=== PATIENT | female | born 1955 | race African-American/Black ===

== ENCOUNTER 2025-05-20 07:42 | Emergency (ER) | payer OTHER ==
[~2025-05-20] VITALS: Ht 170.2 cm; Wt 87.1 kg
--- NOTE | 2025-05-20 08:27 | ED.PDOC ---
Musculoskeletal HPI Comments A 69 YEAR OLD FEMALE PRESENTS TO THE ED WITH COMPLAINT OF LEFT ANKLE SWELLING AND REDNESS. PATIENT STATES SHE HAS BEEN EXPERIENCING LEFT ANKLE PAIN, SWELLING, REDNESS, AND WARMTH TO THE TOUCH FOR THE PAST 1 MONTH. PATIENT REPORTS SHE WENT TO A [facility] WHERE SHE WAS PRESCRIBED KEFLEX, MUPIROCIN OINTMENT, AND ULTRAM, BUT NOTES THERE HAS BEEN NO IMPROVEMENT IN HIS SYMPTOMS OF YET. PATIENT NOTES SHE WAS SENT TO THE ER TODAY BY [facility] TO RULE OUT A DVT IN HER LEFT LOWER EXTREMITY. PATIENT DENIES FEVER, CHILLS, SHORTNESS OF BREATH, CHEST PAIN, ABDOMINAL PAIN, NAUSEA, VOMITING, HEADACHE, OR OTHER COMPLAINTS. NO OTHER SYMPTOMS OR MODIFYING FACTORS AT THIS TIME. PATIENT IS ALERT, ORIENTED X 4, AND HAS STEADY GAIT. Chief Complaint: Lower Extremity Time Seen by MD: 07:51 Reviewed Notes: Nurses Notes, Medications, Allergies Allergies: Coded Allergies: NO KNOWN ALLERGIES (Unverified , 05/20/25) Information Source: Patient Mode of Arrival: Ambulatory Location: Left Extremity Location: Ankle Timing: Weeks Prehospital treatment: None Severity: Moderate Able to Move Extremity: Yes Bear Weight: Fully Pain: Moderate Mechanism: No Trauma, Spontaneous Circumstances: Spontaneous Onset of Symptoms: Spontaneous Symptoms: Swelling, Pain, Erythema, Warmth DVT Risk Factors: NONE Last Tetanus: UTD, Unknown Associated signs and symptoms: Ankle pain Past Medical History PAST MEDICAL HISTORY: Arthritis, HTN Surgical History: Denies all surgeries COMPLAINT ANALYST History: Denies all COMPLAINT ANALYST Hx, No Pertinent COMPLAINT ANALYST History Family History Family History: Reviewed,noncontributory to illness Social History Smoker: Non-Smoker Alcohol: Denies ETOH Use Drugs: Denies Drug Use Lives In: Home Constitutional: denies: chills, diaphoresis, fatigue, fever, malaise, sweats, weakness, others EENTM: denies: blurred vision, double vision, ear bleeding, ear discharge, ear drainage, ear pain, ear ringing, eye pain, eye redness, hearing loss, mouth pain, mouth swelling, nasal discharge, nose bleeding, nose congestion, nose pain, photophobia, tearing, throat pain, throat swelling, voice changes, others Respiratory: denies: cough, hemoptysis, orthopnea, SOB at rest, shortness of breath, SOB with excertion, stridor, wheezing, others Cardiovascular: denies: chest pain, dizzy spells, diaphoresis, Dyspnea on exertion, edema, irregular heart beat, left arm pain, lightheadedness, palpitations, PND, syncope, others Gastrointestinal: denies: abdomen distended, abdominal pain, blood streaked bowels, constipated, diarrhea, dysphagia, difficulty swallowing, hematemesis, melena, nausea, poor appetite, poor fluid intake, rectal bleeding, rectal pain, vomiting, others Genitourinary: denies: abnormal vagina bleeding, burning, dyspareunia, dysuria, flank pain, frequency, hematuria, incontinence, pain, , vagina discharge, urgency, others Neurological: denies: dizziness, fainting, headache, left sided numbness, left sided weakness, numbness, paresthesia, pre-existing deficit, right sided numbness, right sided weakness, seizure, speech problems, tingling, tremors, weakness, others Musculoskeletal: reports: joint pain, joint swelling, others (LEFT ANKLE PAIN AND SWELLING); denies: back pain, gout, muscle pain, muscle stiffness, neck pain Integumetry: reports: others (REDNESS OF LEFT ANKLE, WARMTH TO THE TOUCH); denies: bruises, change in color, change in hair/nails, dryness, laceration, lesions, lumps, rash, wounds Allergic/Immunocompromised: denies: Difficulty Healing, Frequent Infections, Hives, Itching, others Hematologic/Lymphatic: denies: anemia, blood clots, easy bleeding, easy bruising, swollen glands, others Endocrine: denies: excessive hunger, excessive sweating, excessive thirst, excessive urination, flushing, intolerance to cold, intolerance to heat, unexplained weight gain, unexplained weight loss, others Psychiatric: denies: anxiety, bipolar disorder, depression, hopeless, panic di sorder, schizophrenia, sleepless, suicidal, others All Other Systems: Reviewed and Negative Physical Exam General Appearance: No Apparent Distress, Normal HEENT: Normal ENT Inspection, PERRL/EOMI, Pharynx Normal, TMs Normal Neck: Full Range of Motion, Non-Tender, Normal, Normal Inspection Respiratory: Chest Non-Tender, Lungs Clear, No Accessory Muscle Use, No Respiratory Distress, Normal Breath Sounds Cardiovascular: No Edema, No JVD, No Murmur, No Gallop, Normal Peripheral Pulses, Regular Rate/Rhythm Breast Exam: Deferred Gastrointestinal: No Organomegaly, Non Tender, No Pulsatile Mass, Normal Bowel Sounds, Soft Genitalia: Deferred Pelvic: Deferred Rectal: Deferred Extremities: No calf tenderness, Normal capillary refill, Normal range of motion, No pedal edema, Swelling (AND TENDERNESS ON LEFT ANKLE TO LEFT LOWER LEG. ), Tender (AND MILD SWELLING ON LEFT MEDIAL ANKLE WITH LOCALIZED REDNESS, NO OPEN WOUND SEEN. ), Other (MILD REDNESS AND SWELLING ON LEFT LOWER LEG, NO DVT SIGNS. ) Musculoskeletal : Apperance: Normal Neurologic: Alert, sr. pricing analyst II-XII nml as Tested, No Motor Deficits, Normal Affect, Normal Mood, No Sensory Deficits Cerebellar Function: Normal Reflexes: Normal Skin: Dry, Normal Color, Warm Peripheral Pulses: 2+ carotid (R), 2+ carotid (L), 2+ dorsalis pedis (R), 2+ dorsalis pedis (L) Lymphatic: No Adenopathy Was a procedure done? Was a procedure done?: No Differential Diagnosis EXT Differential Diagnosis: Cellulitis, Gout, DJD, Strain, Arthritis X-Ray, Labs, Meds, VS Vital Signs Date Time Temp Pulse Resp B/P (MAP) Pulse Ox O2 Delivery O2 Flow Rate FiO2 05/20/25 09:24 58 15 100 Room Air 05/20/25 09:24 99.0 58 15 119/72 (88) 100 99.0 05/20/25 07:45 98.2 62 18 131/84 99 98.2 Lab Test 05/20/25 08:24 Range/Units White Blood Count 4.0 L 4.4-10.8 10^3/uL Red Blood Count 4.42 4.0-5.20 10^6/uL Hemoglobin 12.6 12.2-16.2 g/dL Hematocrit 38.3 36.0-46.0 % Mean Corpuscular Volume 86.7 80.0-100.0 fL Mean Corpuscular Hemoglobin 28.5 28.0-32.0 pg Mean Corpuscular Hemoglobin Concent 32.8 32.0-36.0 g/dL Red Cell Distribution Width 15.6 H 11.8-14.3 % Platelet Count 188 140-450 10^3/uL Mean Platelet Volume 9.7 6.9-10.8 fL Neutrophils (%) (Auto) 45.8 37.0-80.0 % Lymphocytes (%) (Auto) 39.3 10.0-50.0 % Monocytes (%) (Auto) 8.1 0.0-12.0 % Eosinophils (%) (Auto) 6.2 0.0-7.0 % Basophils (%) (Auto) 0.6 0.0-2.0 % Neutrophils # (Auto) 1.8 1.6-8.6 10 ^3/uL Lymphocytes # (Auto) 1.6 0.4-5.4 10 ^3/uL Monocytes # (Auto) 0.3 0-1.3 10 ^3/uL Eosinophils # (Auto) 0.2 0-0.8 10 ^3/uL Basophils # (Auto) 0 0-0.2 10 ^3/uL Nucleated Red Blood Cells 0.0 % Sodium Level 144 136-145 mmol/L Potassium Level 3.9 3.5-5.1 mmol/L Chloride Level 106 98-107 mmol/L Carbon Dioxide Level 29 20-31 mmol/L Anion Gap 9 5-15 Blood Urea Nitrogen 6 L 9-23 mg/dL Creatinine 0.73 0.550-1.02 mg/dL Glomerular Filtration Rate Calc 90 >90 mL/min BUN/Creatinine Ratio 8.2 L 10.0-20.0 Serum Glucose 83 74-106 mg/dL Lactic Acid Level 1.7 0.4-2.0 mmol/L Uric Acid 4.3 3.1-7.8 mg/dL Calcium Level 9.1 8.7-10.4 mg/dL CLINICAL INDICATION: LEFT ANKLE PAIN AND SWELLING TECHNIQUE: XY L ANKLE 3 VIEW Comparison: None FINDINGS/IMPRESSION: : There is no evidence of acute fracture or dislocation. Soft tissues are unremarkable. Diffuse degenerative changes. Possible chronic posttraumatic nondisplaced healed fracture of the medial malleolus. ATED BY: BO CASTANEDA MD DICTATED DATE/TIME: 05/20/25910 SIGNED BY: BO CASTANEDA MD SIGNED DATE/TIME: 05/20/25910 CC: Left lower extremity venous duplex Clinical History: LEFT ANKLE PAIN TO LEFT LOWER LEG, SENT FROM [facility] Comparison: XY L ANKLE 3 VIEW on DOS: 05/20/25 Technique: Duplex Doppler evaluation of the deep venous system of the left lower extremity from the common femoral vein to the popliteal vein including color Doppler and spectral/pulsed waveform analysis was performed. Findings: The common femoral vein demonstrates appropriate compressibility and waveform variability. There is compressibility/patency of the great saphenous vein at the proximal thigh. The femoral vein demonstrates appropriate compressibility and waveform vari ability. The deep femoral vein demonstrates appropriate compressibility and waveform variability. The popliteal vein demonstrates appropriate compressibility and waveform variability. There is normal compressibility at the tibioperoneal trunk. Impression: No left femoropopliteal venous thrombosis. ATED BY: BO CASTANEDA MD DICTATED DATE/TIME: 05/20/251046 SIGNED BY: BO CASTANEDA MD SIGNED DATE/TIME: 05/20/251046 CC: X-Ray, Labs, Meds, VS Comment EXTERNAL MEDICAL RECORDS REVIEWED: [NONE] INDEPENDENT HISTORIANS: [NONE] SOCIAL DETERMINANTS OF HEALTH: [NONE] LABS ORDERED: CBC, BMP, LACTIC ACID W/REFLEX, URIC ACID REVIEWED AND INTERPRETED RESULTS: NORMAL IMAGING ORDERED: XR ANKLE LT, CV VENOUS DOPPLER LOW EXT LT TREATMENTS ORDERED: NONE PROCEDURES PERFORMED: NONE CRITICAL CARE TIME: NONE I HAVE DISCUSSED THE PATIENT WITH THE ATTENDING PHYSICIAN DR. KENNY AND HE AGREES WITH THE PATIENT'S PLAN OF CARE AND DISPOSITION. BASED ON HISTORY OF PRESENT ILLNESS, AND PHYSICAL EXAM, PATIENT WILL BE DISCHARGED HOME. SHARED DECISION MAKING: DISCUSSED WITH PATIENT THAT THEIR WORKUP WAS NORMAL. PATIENT INSTRUCTED TO FOLLOW UP WITH PRIMARY CARE PROVIDER IN 1-2 DAYS FOR RE- EVALUATION OF SYMPTOMS. PATIENT VERBALIZES UNDERSTANDING TO RETURN TO ED FOR NEW OR WORSENING SYMPTOMS OR IF FOLLOW UP WITH PCP CANNOT BE OBTAINED. PATIENT FEELS COMFORTABLE GOING HOME AT THIS TIME. ALL QUESTIONS ADDRESSED AT TIME OF MIGUEL ÁNGEL ROBLEDO. Images Reviewed?: Images reviewed and evaluated by me Time of 1ST Reevaluation: 10:55 Reevaluation 1ST: Improved Patient Education/Counseling: Diagnosis, Treatment, Need For Follow Up Family Education/Counseling: Diagnosis, Treatment, Need For Follow Up Medical Screening: No EMC Exist At This Time Sepsis Sepsis Reasesment Focused Exam Orders: Laboratory Tests 05/20/25 08:24: Lactic Acid Level 1.7 Departure 1 Departure Time of Disposition: 10:56 Impression: Primary Impression: Degenerative joint disease of left ankle Qualified Codes: M19.072 - Primary osteoarthritis, left ankle and foot Additional Impression: Suspected soft tissue infection Disposition: 01 HOME / SELF CARE / HOMELESS Condition: Stable Additional Instructions: FOLLOW-UP WITH PCP IN 1 TO 2 DAYS. TAKE MEDICATIONS PRESCRIBED. RETURN TO ED FOR ANY NEW OR WORSENING SYMPTOMS. Discharged With: Self Critical Care Note Critical Care Time?: No Stability Stability form required: No I personally scribed for SOFIA JAUREGUI ([email or web address]) on 05/20/25 at 08:27. Electronically submitted by Sujit Lara ([email or web address]). I personally scribed for SOFIA JAUREGUI ([email or web address]) on 05/20/25 at 09:29. Electronically submitted by Sujit Lara ([email or web address]). I personally scribed for SOFIA JAUREGUI ([email or web address]) on 05/20/25 at 10:55. Electronically submitted by Sujit Lara ([email or web address]). SOFIA JAUREGUI May 20, 2025 08:27
[2025-05-20 08:53] LABS: Chloride 106 mmol/L (98-107); Potassium 3.9 mmol/L (3.5-5.1); Sodium 144 mmol/L (136-145)
[2025-05-20 08:54] LABS: Anion Gap 9 (5-15); Calcium 9.1 mg/dL (8.7-10.4); Carbon Dioxide 29 mmol/L (20-31); Hematocrit 38.3 % (36.0-46.0); Hemoglobin 12.6 g/dL (12.2-16.2); Mean Corpuscular Hemoglobin 28.5 pg (28.0-32.0); Mean Corpuscular Volume 86.7 fL (80.0-100.0); Nucleated Red Blood Cells % 0.0 %
[2025-05-20 08:58] LABS: Uric Acid 4.3 mg/dL (3.1-7.8)
[2025-05-20 08:59] LABS: BUN/Creatinine Ratio 8.2 (10.0-20.0); Glucose 83 mg/dL (74-106)
[2025-05-20 09:03] LABS: Blood Urea Nitrogen 6 mg/dL (9-23)
--- NOTE | 2025-05-20 09:14 | DVH ---
CLINICAL INDICATION: LEFT ANKLE PAIN AND SWELLING TECHNIQUE: XY L ANKLE 3 VIEW Comparison: None FINDINGS/IMPRESSION: : There is no evidence of acute fracture or dislocation. Soft tissues are unremarkable. Diffuse degenerative changes. Possible chronic posttraumatic nondisplaced healed fracture of the medial malleolus.
[2025-05-20 09:24] VITALS: BP 119/72; PULSE 58; RESP 15; TEMP 99; O2SAT 100
--- NOTE | 2025-05-20 10:49 | DVH ---
Left lower extremity venous duplex Clinical History: LEFT ANKLE PAIN TO LEFT LOWER LEG, SENT FROM [place] Comparison: XY L ANKLE 3 VIEW on DOS: 05/20/25 Technique: Duplex Doppler evaluation of the deep venous system of the left lower extremity from the common femoral vein to the popliteal vein including color Doppler and spectral/pulsed waveform analysis was performed. Findings: The common femoral vein demonstrates appropriate compressibility and waveform variability. There is compressibility/patency of the great saphenous vein at the proximal thigh. The femoral vein demonstrates appropriate compressibility and waveform variability. The deep femoral vein demonstrates appropriate compressibility and waveform variability. The popliteal vein demonstrates appropriate compressibility and waveform variability. There is normal compressibility at the tibioperoneal trunk. Impression: No left femoropopliteal venous thrombosis.
== END 2025-05-20 10:57 | disposition home or self-care (01) ==
LOC: ER 07:42
DX: M19.072 Primary osteoarthritis, left ankle and foot (principal); L08.9 Local infection of the skin and subcutaneous tissue, unspecified; I10 Essential (primary) hypertension
CPT/HCPCS: 36415; 73610; 80048; 83605; 84550; 85025; 93971